=== PATIENT | female | born 1945 | race Caucasian/White ===

== ENCOUNTER 2016-09-09 06:01 | Day surgery (SDC) | payer MEDICARE ==
[2016-09-05 10:19] LABS: HEMATOCRIT 37.6 % (36.0-48.0); HEMOGLOBIN 12.7 g/dL (12.0-16.0)
--- NOTE | ~2016-09-09 | OP ---
Record Of Operation [facility] [address] [place]. [address] NAME: NAMRATA GÓMEZ : 43 STATUS : REG [facility] PAT#: [id number] AGE: 71 ADM/REG DATE : 09/09/16 MR#: [id number] REPORT SERV DATE: 09/09/16 DICTATED BY: HOWIE QIU DATE: 09/09/16 REPORT STATUS : Draft TRANSCRIBED BY: MODDarion DATE: 09/09/16 DATE OF PROCEDURE: 09/09/2016 PREOPERATIVE DIAGNOSES: 1. Hoarseness. 2. Bilateral vocal cord atrophy. POSTOPERATIVE DIAGNOSES: 1. Hoarseness. 2. Bilateral vocal cord atrophy. PROCEDURE: Microscopic direct laryngoscopy with injection of true vocal cords. INDICATIONS: Namrata Gómez is a 71-year-old female with 1-year long history of vocal fatigue in the afternoons and evenings who was observed to have focal cord atrophy by flexible laryngoscopy in the clinic. I counseled her about the risks, benefits, and alternatives of this procedure. I did tell her that the injectable implant with hydroxyapatite that will be using has a long-lasting effect, but not permanent and so there may be a need for another injection in the future at some point. There was some concern about her limited neck mobility due to her 2 previous spine operations by Dr. Shin. In the end after counseling her again about the risks, benefits, and alternatives of this procedure, we all decided to proceed and do as much as we could do, knowing that there may be a limitation in exposure. PROCEDURE IN DETAIL: Namrata was brought to the operating room and positioned on the table in the supine manner. General endotracheal anesthesia was induced with a #6 oral SAVANNAH tube. The table was rotated 90 degrees. The patient was prepped and draped in the usual fashion. We placed a tooth guard on the upper teeth and used the Dedo laryngoscope to visualize the hypopharynx and the larynx. The piriform sinuses and vallecula and base of tongue all appeared to be within normal limits. We suspended the Dedo laryngoscope once we had good exposure of the true vocal cords and suctioned the cords thoroughly. Prolaryn injection with calcium hydroxyapatite was placed into both sides. We placed a total of 0.2 mL on the right side and 0.3 mL on the left. This appeared to medialize the vocal cord nicely and the larynx was suctioned out one more time. No significant bleeding was occurring. The LTA was placed. The Dedo laryngoscope and Lewy suspension were removed. We did some suctioning in the hypopharynx. The mouth guard was also removed. The patient was cleaned up and the drapes were removed. She was returned to anesthesia control and extubated in the operating room and then moved to the recovery room in good condition. FINDINGS: 1. Estimated blood loss, zero. 2. Bilateral true vocal cord atrophy. 3. No other laryngeal lesions. Record Of Operation [address] [address] NAME: NAMRATA GÓMEZ : 43 STATUS : REG [facility] PAT#: [id number] AGE: 71 ADM/REG DATE : 09/09/16 MR#: [id number] REPORT SERV DATE: 09/09/16 DICTATED BY: HOWIE QIU DATE: 09/09/16 REPORT STATUS : Draft TRANSCRIBED BY: RAHEL DATE: 09/09/16 BRANDY/RAHEL Howie Qiu M.D. / [id number] CC: Manjit Ram
[~2016-09-09 06:01] MED LIST: ADVIL PO; ARMOUR THYRO90 MG PO; ENDOMETRIN100 MG V
== END 2016-09-09 11:43 | disposition home or self-care (01) ==
LOC: SDC 06:01
PROVIDERS: Otolaryngology
PROC: 3E0F8GC Introduction of Other Therapeutic Substance into Respiratory Tract, Via Natural or Artificial Opening Endoscopic (ICD-10-PCS; principal; 2016-09-09 07:15)
DX: J38.7 Other diseases of larynx (principal)
CPT/HCPCS: 85014; 85018; 93005; C1878; J0690; J2405; J2710; J3010